=== PATIENT | male | born 1980 | race Caucasian/White ===

== ENCOUNTER 2017-02-27 05:03 | Day surgery (SDC) | payer OTHER ==
[~2017-02-27] VITALS: Ht 177.8 cm; Wt 113.4 kg
[~2017-02-27 05:03] MED LIST: OMEPRAZOLE20 M1 PO
[2017-02-27] MEDS ORDERED: ZANAFLEX4 MG PO (05:29)
[2017-02-27 05:40] VITALS: BP 131/81; Ht 177.8 cm; Wt 113.4 kg
--- NOTE | 2017-02-27 09:15 | NUR ---
0910- PT BACK TO ROOM. IN BED WITH HOB ELEVATED. FULL LIQUIDS OFFERED. FAMILY AT BEDSIDE. C/O 2/10 WITH PAIN, NO MEDICATIONS GIVEN AT THIS TIME. VSS. WILL MONITOR.
--- NOTE | 2017-02-27 12:06 | OP ---
PATIENT NAME: HELENA TYLER MEDICAL RECORD: [id number] :80 [facility] DATE: SURGEON: QUINCY MARIA MD DATE OF OPERATION: 02/27/2017 SURGEON: Quincy Maria MD ANESTHESIA: General anesthesia by Dr. Restrepo. PREOPERATIVE DIAGNOSIS: Elective male sterilization. PROCEDURE: Vasectomy. FINDINGS: Bilateral normal vasa deferentia. SPECIMENS: Vas segments bilaterally. COMPLICATIONS: None. ESTIMATED BLOOD LOSS: None. CLINICAL HISTORY: This is a 37-year-old male, who is and who has 1 child. He wishes to have a vasectomy. He is otherwise in good health. Risks of hematoma formation and ongoing presence of sperms post-vasectomy was explained to the patient. He wished to proceed with surgery. He was given Ancef 2 grams IV supervisor electronic coils to the OR. DESCRIPTION OF PROCEDURE: The patient was given induction of general anesthesia in supine position. He was then prepped and draped. The vas deferens was palpated through the scrotal skin on the right side. A towel clip was then used to prevent it from migrating away from the pinch of the fingers. The skin overlying the vas was infiltrated with 0.25% Marcaine without epinephrine. A 1 cm long incision was made along the length of the vas on the scrotal skin. A small right angle clamp was used to isolate the vas. The tunics on the vas were dissected using Bovie. We cleared at least 1 cm of vas length. The distal and proximal ends of the vas were tied with 2-0 Prolene. The intervening segment was cut with Metzenbaum scissors and sent to pathology in formalin. The ends of the vas segments were cauterized. The segments were then placed back into the hemiscrotum. Any venous bleeding was cauterized. The scrotal skin was then closed with simple interrupted 3-0 Vicryl. The same procedure was performed on the left side. Fluffs and mesh panties were then given to the patient. He will be going home with a script for Tylenol #3, 20 tablets with no refills. I will see him next week to check on his wound healing. TRANSINT:[id number] Voice Confirmation ID: [id number] DOCUMENT ID: [id number] QUINCY MARIA MD at 1206 CC: [id number] DICTATION DATE: 02/27/17 0904 BENCH PRESS OPERATOR: 02/27/17 1014 [facility] 02/27/17 [id number] [place] [address]
== END 2017-02-27 10:20 | disposition home or self-care (01) ==
LOC: D.OPS 05:03 → D.PAN 07:30 → D.OPS 07:30
DX: Z30.2 Encounter for sterilization (principal); K21.9 Gastro-esophageal reflux disease without esophagitis; Z01.812 Encounter for preprocedural laboratory examination